=== PATIENT | male | born 1965 | race Caucasian/White ===

== ENCOUNTER → 2020-10-29 15:08 | Outpatient (BNVA) | payer OTHER, SELFPAY | PROVIDERS: Visit Provider Nurse Practitioner Family | DX: Z20.822 Contact with and (suspected) exposure to COVID-19 (principal); J06.9 Acute upper respiratory infection, unspecified | CPT/HCPCS: 87635 ==

== ENCOUNTER 2023-04-17 10:16 | Emergency (ER) | payer OTHER, SELFPAY ==
[2023-04-17] VITALS (16 sets, daily range): BP systolic 132–221; BP diastolic 82–142; PULSE 70–93; RESP 15–17; TEMP 36.6; O2SAT 96–100; BMI 26.2
--- NOTE | 2023-04-17 10:58 | ED_ITS ---
HPI - Dizziness 2 General: Chief Complaint: Dizziness Stated Complaint: headache , dizzy , N/V Time Seen by Provider: 04/17/23 10:33 Source: patient Mode of arrival: ambulatory History of Present Illness: HPI Narrative: 57-year-old male presents emerged compla int lightheaded dizziness with nausea no fever sweats or chills. No ataxia, no vision changes. Patient has had the symptoms along with a headache for the last 4 days. He had previously been on blood pressure medication but was taken off of it sometime ago he has a history of previous strokes was thought to be related to a procedure sounds like he had a stenosis and an embolic event from their description.. No chest pain. No productive cough. No abdominal pain blood pressure is significantly elevated. He is not currently on any medications. MD elicited complaint: dizziness Onset (ago): day(s) (4) Timing: gradual onset Severity: moderate Description: lightheadedness Exacerbating factors: nothing Relieving factors: nothing Associated symptoms: Reports headache(s); Denies change in hearing, chest pain, chills, cough, diaphoresis, ear discharge, ear pressure, fevers/chills, malaise, nausea, nasal congestion, palpitations, rash, short of breath, syncope, tinnitus, vomiting or weakness Associated neuro symptoms: Deny confusion, difficulty speaking, dysphagia, diplopia, extremity weakness, facial numbness, facial weakness, gait changes, numbness in extremities or visual changes Review of Systems 2 Const: Denies: fever(s), chills, malaise or diaphoresis ENMT: Denies: ear discharge, change in hearing, tinnitus or nasal congestion Card: Denies: chest pain, palpitations or syncope Resp: Denies: dyspnea GI: Denies: abdominal pain, nausea, vomiting or dysphagia : Denies: dysuria, urinary frequency or urinary urgency Musc: Denies: neck pain or back pain Skin/Breast: Denies: rash Neuro: Reports: headache(s); Denies: numbness in extremities or confusion Physical Exam 2 Const: GENERAL APPEARANCE: cooperative and comfortable O RIENTATION/CONSCIOUSNESS: Yes awake, Yes oriented to person, Yes oriented to place and Yes oriented to time HENMT: COMMON NORMALS: normocephalic, atraumatic and hearing grossly normal bilaterally HEAD & SCALP: normocephalic and atraumatic Resp: COMMON NORMALS: normal respiratory effort, No retractions, No use of accessory muscles and clear to auscultation bilaterally AUSCULTATION: clear to auscultation bilaterally Cardio: COMMON NORMALS: regular rate, regular rhythm and No murmurs present (Cardio) RATE: regular rate RHYTHM: regular rhythm GI: COMMON NORMALS: Soft to palpation and No hepatosplenomegaly present A USCULTATION: Yes normoactive bowel sounds PALPATION: Yes Soft to palpation, No Tenderness to palpation present (GI), No Guarding due to palpation present (GI) and Yes No hepatosplenomegaly present Extremity: COMMON NORMALS: normal to inspection, capillary refill normal, no clubbing, cyanosis or edema, no calf tenderness and no pedal edema Neuro: SENSORIUM/ORIENTATION: Yes oriented to person, Yes oriented to place and Yes oriented to time OTHER: No focal neurologic deficits Skin: COMMON NORMALS: no rashes or lesions noted GENERAL SKIN EXAM: no rashes or lesions noted Course 2 Vital Signs: Vital signs: Vital Signs Temperature 97.8 F 04/17/23 10:36 Pulse Rate 90 04/17/23 18:30 Respiratory Rate 17 04/17/23 18:41 Blood Pressure 150/92 04/17/23 18:30 Pulse Oximetry 97 04/17/23 18:41 Oxygen Delivery Me thod Room Air 04/17/23 10:36 MDM - Dizziness Medical Decision Making CT shows left cerebellar infarct appears to be several days old. 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 There is also stenosis at the M1 to branch of the left middle cerebral artery likely where he had the previous infarct. His did have old records which were scanned into the chart. There is swelling in the area of the infarct beginning to show evidence of some compression on the fourth ventricle. Will transfer to tertiary care in the event that swelling continues may need intervention with neurosurgery. [facility] except on ER to ER transfer by [facility] ambulance. While here patient's blood pressure was actively managed. He was given labetalol initially and started on nicardipine. Medical Records I reviewed the patient's medical records. Lab Data I reviewed the patient's lab results. 04/17/23 10:58 04/17/23 10:58 Radiology Impressions Head/Neck CTA 04/17/23 16:10 IMPRESSION: 1. Left PICA territory infarct with evidence of thrombosis of the left PICA. 2. Focal hypoattenuation in the posteromedial right cerebellar hemisphere the question of infarct. Consider correlation with MRI. 3. Atherosclerotic irregularity of the left M1-M2 junction and high-grade stenosis of a left M2 sylvian branch. IMPRESSION: 1. Focal high-grade stenoses of the left vertebral artery V2 segment at the level of C4 with diffuse luminal irregularity and narrowing of the vessel. Though there is no distinct dissection flap. Dissection would be difficult to exclude. Consider correlation with catheter angiography. THIS REPORT CONTAINS FINDINGS THAT MAY BE CRITICAL TO PATIENT CARE. The findings were verbally communicated by telephone with MICHOACANO Lynch at 5:30 PM SHOPFITTER on 04/17/2023. The findings were acknowledged and understood. REFERENCES: NASCET CRITERIA. The degree of stenosis in the cervical segment of the internal carotid artery is based on NASCET criteria. Normal is no stenosis. Mild is less than 50% stenosis. Moderate is 50-69% stenosis. Severe is 70% to 99% stenosis. Total occlusion is no detectable patent lumen. Laboratory Results WBC 10.19 10^3/uL (3.29-11.43) 04/17/23 10:58 RBC 6.35 10^6/uL (3.85-5.65) H 04/17/23 10:58 Hgb 18.40 g/dL (11.27-16.99) H 04/17/23 10:58 Hct 53.5 % (37-53) H 04/17/23 10:58 MCV 84.3 fl (82-101) 04/17/23 10:58 MCH 29.0 pg (27-33) 04/17/23 10:58 MCHC 34.4 g/dL (30-55) 04/17/23 10:58 RDW 13.6 % (12.1-15.1) 04/17/23 10:58 Plt Count 289 10^3/cmm (157-399) 04/17/23 10:58 MPV 10.4 fL (7.4-10.4) 04/17/23 10:58 Neut % (Auto) 73.8 % 04/17/23 10:58 Lymph % (Auto) 18.6 % 04/17/23 10:58 [place] % (Auto) 5.0 % 04/17/23 10:58 Eos % (Auto) 1.4 % 04/17/23 10:58 Baso % (Auto) 0.8 % 04/17/23 10:58 Neut # (Auto) 7.52 10^3/uL (1.8-7.7) 04/17/23 10:58 Lymph # (Auto) 1.9 10^3/uL (0.8-4.8) 04/17/23 10:58 [place] # (Auto) 0.5 10^3/uL (0.2-0.9) 04/17/23 10:58 Eos # (Auto) 0.1 10^3/uL (0.0-0.8) 04/17/23 10:58 Baso # (Auto) 0.1 10^3/uL (0.0-0.1) 04/17/23 10:58 Nucleated RBC % (auto) 0 % 04/17/23 10:58 Nucleated RBCs # 0.0 /100WBC 04/17/23 10:58 Sodium 135 mmol/L (136-145) L 04/17/23 10:58 Potassium 4.5 mmol/L (3.5-5.1) 04/17/23 10:58 Chloride 98 mmol/L (98-107) 04/17/23 10:58 Carbon Dioxide 25 mmol/L (22-29) 04/17/23 10:58 Anion Gap 16.5 (5-19) 04/17/23 10:58 BUN 16 mg/dL (6-20) 04/17/23 10:58 Creatinine 1.1 mg/dL (0.7-1.2) 04/17/23 10:58 GFR Calculation 69.2 mL/min (90-130) L 04/17/23 10:58 Glucose 115 mg/dL (65-115) 04/17/23 10:58 Calculated Osmolality 282 mOsm/kg (285-295) L 04/17/23 10:58 Calcium 9.4 mg/dL (8.5-10.5) 04/17/23 10:58 Total Bilirubin 1.0 mg/dL (0.15-1.2) 04/17/23 10:58 AST 26 U/L (0-40) 04/17/23 10:58 ALT 28 U/L (0-41) 04/17/23 10:58 Alkaline Phosphatase 115 U/L (40-130) 04/17/23 10:58 Troponin T Baseline < 6 ng/L (0-15) 04/17/23 10:58 Troponin T 120 Minute 6.16 ng/L (0-15) 04/17/23 13:23 Delta Troponin T 0.39196 ABS# (0-10) 04/17/23 13:23 Troponin T Hi Sens 6Hr 8.05 ng/L (0-15) 04/17/23 17:06 Troponin T Hi Sens 6Hr Delta 2.69861 ng/L (0-12) 04/17/23 17:06 Total Protein 7.7 g/dL (6.6-8.7) 04/17/23 10:58 Albumin 4.5 g/dL (3.5-5.2) 04/17/23 10:58 Globulin 3.2 g/dL (1.3-4.6) 04/17/23 10:58 Urine Color Colorless (Yellow) 04/17/23 12:46 Urine Appearance Clear (CLEAR) 04/17/23 12:46 Urine pH 7 (5-7) 04/17/23 12:46 Ur Specific [place] 1.010 (1.005-1.030) 04/17/23 12:46 Urine Protein Neg (Negative) 04/17/23 12:46 Urine Glucose (UA) Norm (Normal) 04/17/23 12:46 Urine Ketones 1+ (Negative) H 04/17/23 12:46 Urine Blood Neg (Negative) 04/17/23 12:46 Urine Nitrate Negative (Negative) 04/17/23 12:46 Urine Bilirubin Neg (Negative) 04/17/23 12:46 Urine Urobilinogen Norm mg/dL (Negative) 04/17/23 12:46 Ur Leukocyte Esterase Negative (Negative) 04/17/23 12:46 Influenza Type A Ag negative (Negative) 04/17/23 10:58 Influenza Type B Ag negative (Negative) 04/17/23 10:58 All radiology interpretation(s) finalized by discharge Critical Care Time 2 Critical Care Time: Critical Care Time: Yes Total Critical Care Time: 40 Attestation: The high probability of a clinically significant, sudden or life threatening deterioration of the patient's neurologic cardiovascular system(s) required my full and direct attention, intervention and personal management. The critical care time is as shown. 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, Accelerated hypertension Condition: Stable Referrals: Ramya Sanders DO [Primary Care Provider] - Coding Level of Care Code ED Flame Cutting Machine Operator for Andrew Rodriguez NIH stroke score NIHSS Level Of Consciousness - 1a: 0 Level Of Consciousness Questions - 1b: Both Correct Level Of Consciousness Commands - 1c: Both Correct Best Gaze - 2: Normal Visual Hedrick - 3: No Visual Loss Facial Palsy - 4: Normal Motor Arm Right - 5: No Drift Motor Arm Left - 5: No Drift Motor Leg Right - 6: No Drift Motor Leg Left - 6: No Drift Limb Ataxia - 7: Absent Sensory - 8: Normal Best Language - 9: No Aphasia Dysarthia - 10: Normal Extinction And Inattention - 11: 0 Score Total Score: 0
[2023-04-17 11:13] LABS: Basophils # 0.1 10^3/uL (0.0-0.1); Basophils % 0.8 %; Eosinophils # 0.1 10^3/uL (0.0-0.8); Eosinophils % 1.4 %; Hematocrit 53.5 % (37-53); Lymphocytes # 1.9 10^3/uL (0.8-4.8); Lymphocytes % 18.6 %; Mean Corpuscular HGB Conc 34.4 g/dL (30-55); Mean Corpuscular Volume 84.3 fl (82-101); Mean Platelet Volume 10.4 fL (7.4-10.4); Monocytes # 0.5 10^3/uL (0.2-0.9); Neutrophils # 7.52 10^3/uL (1.8-7.7); Neutrophils % 73.8 %; Nucleated Red Blood Cells % 0 %; Platelet Count 289 10^3/cmm (157-399); Red Blood Count 6.35 10^6/uL (3.85-5.65); Red Cell Distribution Width 13.6 % (12.1-15.1); White Blood Count 10.19 10^3/uL (3.29-11.43)
--- NOTE | 2023-04-17 11:27 | XR_ITS ---
WS: [id number] Portable AP upright chest, 04/17/2023 Clinical Data: dyspnea/cough Comparison: Portable chest, 08/17/2013 Findings: No nodules, masses or effusions are seen. The heart is normal. The pulmonary vascularity is not increased. No pneumonia or pneumothorax is seen. Impression: Negative chest.
[2023-04-17 11:28] LABS: Potassium 4.5 mmol/L (3.5-5.1)
[2023-04-17] MEDS: labetalol 5 mg/mL SDV 20mL 10 MG IVP (11:29)
[2023-04-17] MEDS: sodium chloride 0.9% 1,000 ML 999 ML IV (11:29)
[2023-04-17] MEDS: hyDRALAzine 20 mg/mL INJ 1 mL 10 MG IVP ×2 (11:29→12:36)
[2023-04-17 11:31] LABS: Influenza A by IFA negative (Negative); Influenza B by IFA negative (Negative)
--- NOTE | 2023-04-17 11:44 | ECG_ITS ---
[facility] Test Date: 2023-04-17 Pat Name: Brayan Muhammad Department: Room: Gender: Male Computer Operations Technician: : 1965 Requested By: Owen Barba Order Number: [id number] Chito MD: Javi Ames M.D. Measurements Intervals [place] Rate: 70 P: 51 ME: 172 QRS: 50 QRSD: 91 T: 53 QT: 391 QTc: 424 Interpretive Statements SINUS RHYTHM No previous ECG available for comparison Electronically Signed On 04-17-2023 13:59:54 RUBBER TIRE AND TUBES SUPERVISOR by Javi Ames M.D. [id number]
[2023-04-17 11:47] LABS: Alanine Aminotransferase 28 U/L (0-41); Alkaline Phosphatase 115 U/L (40-130); Anion Gap 16.5 (5-19); Aspartate Amino Transferase 26 U/L (0-40); Blood Urea Nitrogen 16 mg/dL (6-20); Calcium 9.4 mg/dL (8.5-10.5); Carbon Dioxide 25 mmol/L (22-29); Globulin 3.2 g/dL (1.3-4.6); Glomerular Filtration Rate 69.2 mL/min (90-130); Glucose 115 mg/dL (65-115); Osmolality Calculated 282 mOsm/kg (285-295); Total Protein 7.7 g/dL (6.6-8.7)
[2023-04-17 11:48] LABS: Albumin Level 4.5 g/dL (3.5-5.2); Chloride 98 mmol/L (98-107); Sodium 135 mmol/L (136-145)
[2023-04-17 11:59] LABS: Troponin(5th) Baseline < 6 ng/L (0-15)
[2023-04-17] MEDS: ondansetron 2 mg/ML SDV 2 mL 4 MG IVP (12:56)
[2023-04-17 13:01] LABS: Add Urine Microscopic? NO; Charge for UA Resulting for Rev
[2023-04-17] MEDS: nicardipine 20 MG/200 ML PREMIX 50 MG IV ×2 (13:01→16:10)
[2023-04-17 13:05] LABS: Bilirubin Urine Neg (Negative); Blood Urine Neg (Negative); Glucose Urine UA Norm (Normal); Ketones Urine 1+ (Negative); Leukocyte Esterase Urine Negative (Negative); Nitrate Urine Negative (Negative); Protein Urine Neg (Negative); Urine Appearance Clear (CLEAR); Urine Color Colorless (Yellow); Urobilinogen Urine Norm (Negative); pH Urine 7 (5-7)
--- NOTE | 2023-04-17 13:11 | ECG_ITS ---
[facility] Test Date: 2023-04-17 Pat Name: Brayan Muhammad Department: Room: Gender: Male Food Broker: : 1965 Requested By: Owen Barba Order Number: [id number] Chito MD: Javi Ames M.D. Measurements Intervals [place] Rate: 93 P: 64 OK: 173 QRS: 53 QRSD: 94 T: 55 QT: 347 QTc: 432 Interpretive Statements SINUS RHYTHM MINIMAL VOLTAGE CRITERIA FOR LVH, CONSIDER NORMAL VARIANT [MEETS CRITERIA IN ONE OF: R(aVL), S(V1), R(V5), R(V5/V6)+S(V1)] NONSPECIFIC T-WAVE ABNORMALITY Compared to ECG 04/17/2023 11:44:04 T-wave abnormality now present Electronically Signed On 04-17-2023 14:01:23 PHOTOGRAMMETRIC TECH by Javi Ames M.D. [id number]
[2023-04-17] MEDS: morphine 4 mg/mL SDV 1 mL 2 MG IVP (14:03)
--- NOTE | 2023-04-17 14:04 | CT_ITS ---
WS: [id number] CT HEAD NONCONTRAST HISTORY: Accelerated hypertension headache TECHNIQUE: Contiguous axial imaging performed through the brain in 2.5 mm imaging. Bone and soft tiss ue windows. Sagittal and coronal reformats reviewed. All CT scans at [facility] use at least one of these dose optimization techniques: automated exposure control; mA and/or kV adjustment per pa tient size (includes targeted exams where dose is matched to clinical indication); or iterative recon struction. DLP: 1064.50 mGy.cm COMPARISON: 08/17/2013 Large area of decreased attenuation in the LEFT cerebellum. This is along the inferomedial cerebellum in the PICA territory. There is no hemorrhage identified. There is slight mass effect upon the midli ne structures due to edema. Mass effect upon the fourth ventricle. Additional age-indeterminate infar ct in the LEFT basal ganglia. This is new since 2013. No significant atrophy. Very minimal small vessel ischemic disease. Ventricles: Normal size with no hydrocephalus. No inferior displacement the cerebellar tonsils. Paranasal sinuses: As visualized are clear. Mastoid air cells: Well pneumatized. Calvarium and scalp: Skull is intact with no soft tissue edema or swelling. IMPRESSION: 1. Large area of decreased attenuation in the LEFT cerebellum. This is most likely a subacute infarc t greater than 48 hours old. There is some edema with effacement of the sulci and very minimal extens ion across the midline. Mild mass effect upon the fourth ventricle from the edema. No hemorrhage. Inf arct within the distribution of the PICA. Recommend follow-up CT angiogram head and neck to evaluate for a PICA dissection or thrombus. 2. Additional age-indeterminate lacunar infarct in the LEFT basal ganglia. Notified Owen Thrasher DO at 04/17/2023 2:42 PM.
[2023-04-17 14:18] LABS: Troponin 5 2HR 6.16 ng/L (0-15); Troponin 5 2HR Delta 0.16001 ABS# (0-10)
--- NOTE | 2023-04-17 14:23 | CT_ITS ---
WS: [id number] CT ORBITS, NONCONTRAST HISTORY: subconjunctival hematoma Technique: All CT scans at [facility] use at least one of these dose optimization techniques: automated exposure control; mA and/or kV adjustment per patient size (includes targeted exams where dose is matched to clinical indication); or iterative reconstruction. DLP: 385.36 mGy.cm COMPARISON: None available. No fractures. Nasal bones and zygomatic arches are intact. Normal appearance of the orbits. There is a small foreign body measuring 4 mm anterior to the RIGHT globe. This does appear to be a metallic or high density foreign body. There is no mass or change in density within the globes. There is a small amount of soft tissue edema preseptal over the RIGHT orbit. No significant sinus dis ease. IMPRESSION: 1. No hemorrhage or increased density within the globes. 2. Very minimal soft tissue edema over the RIGHT orbit. 3. There is a metallic foreign body associated with the RIGHT orbit.
--- NOTE | 2023-04-17 14:39 | P.HP_ITS ---
Providers/Chief Complaint 2 Admitting Physician: Stacy Brooks MD Primary Care Provider: Ramya Sanders DO Chief Complaint: headache , dizzy , N/V History of Present Illness Brayan Muhammad is a 57 year old male Medications/Allergies Home Medications Medication Instructions Recorded Confirmed Last Taken Type naproxen sodium 220 mg capsule 440 mg PO Q8H PRN Pain 04/17/23 04/17/23 Unknown History (Aleve) oxycodone 15 mg tablet 15 mg PO TID 04/17/23 04/17/23 04/17/23 History Allergies Allergy/AdvReac Type Severity Reaction Status Date / Time No Known Allergies Allergy Unverified 04/17/23 10:40 Vitals/I&O/Wt Last Vital Signs Temp 97.8 F 04/17/23 10:36 Pulse 93 04/17/23 13:39 Resp 16 04/17/23 14:03 BP 154/91 04/17/23 13:39 Pulse Ox 99 04/17/23 14:03 O2 Del Method Room Air 04/17/23 10:36 04/16/23 04/17/23 04/17/23 22:59 06:59 14:59 Intake Total 1030.833 / 1030.833 Balance 1030.833 / 1030.833 Weight last 48 hrs Weight 80.739 kg Data 04/17/23 10:58 04/17/23 10:58 Coding Level of Care Code Acute Code for Chg Fwd
[2023-04-17] MEDS: morphine 4 mg/mL SDV 1 mL IVP ×2 (16:01→18:41)
--- NOTE | 2023-04-17 16:10 | CTR_ITS ---
PROCEDURE INFORMATION: Exam: CTA Head With Contrast, Arteriography Exam date and time: 04/17/2023 4:26 PM Age: 57 years old Clinical indication: Dizziness and giddiness and headache and other: N/v; Additional info: Cerebellar stroke TECHNIQUE: Imaging protocol: Computed tomographic angiography of the head with contrast. Exam focused on the arteries. 3D rendering (Not supervised by radiologist): MIP and/or 3D reconstructed images were created by the technologist. Radiation optimization: All CT scans at this facility use at least one of these dose optimization techniques: automated exposure control; mA and/or kV adjustment per patient size (includes targeted exams where dose is matched to clinical indication); or iterative reconstruction. Contrast material: OMNI 350; Contrast volume: 100 ml; Contrast route: INTRAVENOUS (IV); COMPARISON: CT head wo con* [id number] 04/17/2023 2:17 PM RADIATION DOSE METRICS: Total DLP (mGy-cm): 500.33 FINDINGS: ANTERIOR CIRCULATION: Right internal carotid artery: No evidence of thrombosis or aneurysm. No evidence of hemodynamically significant stenosis. No evidence of vascular injury. Right middle cerebral artery: No evidence of thrombosis or aneurysm. Right anterior cerebral artery: No evidence of thrombosis or aneurysm. Left internal carotid artery: There is severe atherosclerotic narrowing of the clinoid segment of the left internal carotid artery (images 230 2-2233 of the axial series 4). No evidence of occlusion. Left middle cerebral artery: There is early branching of the left middle cerebral artery M1-2 junction with stenosis and irregularity of the junction. No evidence of occlusion. Additional high-grade stenosis is noted of a left sylvian M2 segment (for example, images 240 2-245 of the axial series 4). Left anterior cerebral artery: No evidence of thrombosis or aneurysm. POSTERIOR CIRCULATION: Right vertebral artery: No evidence of thrombosis or aneurysm. No evidence of vascular injury. Left vertebral artery: The distal left vertebral artery V4 segment is patent. There is thrombosis of the left PICA (image 222 of the axial series 4). Basilar artery: No evidence of thrombosis or aneurysm. Right posterior cerebral artery: No evidence of thrombosis or aneurysm. Left posterior cerebral artery: No evidence of thrombosis or aneurysm. Brain: Acute-subacute left PICA territory infarct. There is additional hypoattenuation in the posteromedial right cerebellar hemisphere raising the question of infarct. Chronic appearing left basal ganglia infarct. Cerebral ventricles: No hydrocephalus. Bones/joints: The calvarium is intact. Craniocervical junction is intact. Soft tissues: No gross soft tissue abnormality. PROCEDURE INFORMATION: Exam: CTA Neck With Contrast Exam date and time: 04/17/2023 4:26 PM Age: 57 years old Clinical indication: Dizziness and giddiness and headache and other: N/v; Additional info: Cerebellar stroke TECHNIQUE: Imaging protocol: Computed tomographic angiography of the neck with contrast. Exam focused on the cervical segments of the vasculature. 3D rendering (Not supervised by radiologist): MIP and/or 3D reconstructed images were created by the technologist. Radiation optimization: All CT scans at this facility use at least one of these dose optimization techniques: automated exposure control; mA and/or kV adjustment per patient size (includes targeted exams where dose is matched to clinical indication); or iterative reconstruction. Contrast material: OMNI 350; Contrast volume: 100 ml; Contrast route: INTRAVENOUS (IV); COMPARISON: CT orbit BI wo con* [id number] 04/17/2023 2:24 PM RADIATION DOSE METRICS: Total DLP (mGy-cm): 500.33 FINDINGS: Right common carotid artery: No evidence of hemodynamically significant stenosis. No evidence of dissection. Right internal carotid artery: No evidence of hemodynamically significant stenosis. No evidence of dissection. Right external carotid artery: Patent. Left common carotid artery: No evidence of hemodynamically significant stenosis. No evidence of dissection. Left internal carotid artery: No evidence of hemodynamically significant stenosis. No evidence of dissection. Left external carotid artery: Patent. Right vertebral artery: Patent. No evidence of dissection. Left vertebral artery: There is focal high-grade stenoses of the left vertebral artery V2 segment at the level of C4 with diffuse luminal irregularity and narrowing of the vessel (for example, image 132 of the axial series 4). Though there is no distinct dissection flap. Dissection would be difficult to exclude. No evidence of occlusion. Soft tissues: No gross soft tissue abnormality. No evidence of fluid collection or hematoma. Bones/joints: No evidence of acute fracture or subluxation of the cervical spine. CT/CT angio headneck* [id number] IMPRESSION: 1. Left PICA territory infarct with evidence of thrombosis of the left PICA. 2. Focal hypoattenuation in the posteromedial right cerebellar hemisphere the question of infarct. Consider correlation with MRI. 3. Atherosclerotic irregularity of the left M1-M2 junction and high-grade stenosis of a left M2 sylvian branch. IMPRESSION: 1. Focal high-grade stenoses of the left vertebral artery V2 segment at the level of C4 with diffuse luminal irregularity and narrowing of the vessel. Though there is no distinct dissection flap. Dissection would be difficult to exclude. Consider correlation with catheter angiography. THIS REPORT CONTAINS FINDINGS THAT MAY BE CRITICAL TO PATIENT CARE. The findings were verbally communicated by telephone with MICHOACANO Lynch at 5:30 PM LOAN ADMINISTRATOR on 04/17/2023. The findings were acknowledged and understood. REFERENCES: NASCET CRITERIA. The degree of stenosis in the cervical segment of the internal carotid artery is based on NASCET criteria. Normal is no stenosis. Mild is less than 50% stenosis. Moderate is 50-69% stenosis. Severe is 70% to 99% stenosis. Total occlusion is no detectable patent lumen.
[2023-04-17] MEDS: iohexol 350 mg/mL 500 mL Btl (per mL) IV (16:31)
[2023-04-17 17:34] LABS: Troponin 5 6HR 8.05 ng/L (0-15); Troponin 5 6HR Delta 2.05001 ng/L (0-12)
--- NOTE | 2023-04-17 17:46 | ECG_ITS ---
[facility] Test Date: 2023-04-17 Pat Name: Brayan Muhammad Department: Room: [facility] Gender: Male Assistant Credit Manager: : 1965 Requested By: Owen Barba Order Number: [id number] Chito MD: Javi Ames M.D. Measurements Intervals [place] Rate: 101 P: 64 IA: 150 QRS: 52 QRSD: 89 T: 46 QT: 335 QTc: 435 Interpretive Statements SINUS TACHYCARDIA NONSPECIFIC T-WAVE ABNORMALITY Compared to ECG 04/17/2023 13:11:52 Sinus rhythm no longer present T-wave abnormality still present Electronically Signed On 04-17-2023 23:46:16 CAR BLOCKER by Javi Ames M.D. [id number]
== END 2023-04-17 19:58 | disposition short-term general hospital (02) ==
LOC: ER 10:59 → ICU 14:20
PROVIDERS: Emergency Provider Family Medicine; PCP Family Medicine
DX: I63.542 Cerebral infarction due to unspecified occlusion or stenosis of left cerebellar artery (principal); I10 Essential (primary) hypertension
CPT/HCPCS: 36415; 70450; 70480; 70496; 70498; 71045; 80053; 81003; 84484; 85025; 87804; 93005; 96365; 96366; 96375; 96376; 99285; J0360; J2270; J2405; J3490; J7030; Q9967